=== PATIENT | female | born 1980 | race Caucasian/White ===

== ENCOUNTER 2017-01-24 17:47 | Inpatient (IN) | payer MEDICARE, MEDICAID ==
[~2017-01-24] VITALS: Ht 172.7 cm; Wt 90.7 kg
[2017-01-24 20:23] VITALS: BP 136/92
[2017-01-24] MEDS ORDERED: POTASSIUM CHLORIDE 20 MEQ ER TABLET PO ONE (21:00)
[2017-01-24] MEDS ORDERED: PNEUMOCOCCAL VACCINE POLYVALENT 0.5 ML VIAL [PPSV23] IM ONE (21:00)
[2017-01-24] MEDS: LORazepam 2 MG TABLET PO PRN (21:11)
[2017-01-25 07:21] VITALS: BP 139/89
[2017-01-25 07:51] LABS: EOSINOPHILS % (AUTO) 5.6 % (1.0-6.0); HEMATOCRIT 43.9 % (36-46); HEMOGLOBIN 14.2 g/dL (12.0-16.0); LYMPHOCYTES # (AUTO) 3.9 K/uL (1.0-4.8); LYMPHOCYTES % (AUTO) 52.6 % (22.0-44.0); MEAN CORPUSCULAR HEMOGLOBIN 30.6 pg (26.0-34.0); MEAN CORPUSCULAR HGB CONC 32.2 G/dL (31.0-37.0); MEAN CORPUSCULAR VOLUME 95 fL (80-100); MONOCYTES # (AUTO) 0.7 K/uL (0.1-1.0); MONOCYTES % (AUTO) 9.1 % (2.0-9.0); NEUTROPHILS # (AUTO) 2.4 K/uL (1.8-7.7); NEUTROPHILS % (AUTO) 31.7 % (40.0-70.0); PLATELET COUNT (AUTO) 311 K/uL (150-450); RED BLOOD CELL COUNT(AUTO) 4.62 MIL/uL (4.00-5.20); RED CELL DISTRIBUTION WIDTH 13.3 % (11.5-14.5); WHITE BLOOD COUNT (AUTO) 7.5 K/uL (4.5-11.0)
[2017-01-25 08:29] LABS: ALANINE AMINOTRANSFERASE 47 U/L (12-78); ALBUMIN 3.4 g/dL (3.4-5.0); ANION GAP 8 mmol/L (8-16); ASPARTATE AMINOTRANSFERASE 45 U/L (15-37); BILIRUBIN,TOTAL 0.4 mg/dL (0.1-1.0); CALCIUM, TOTAL 8.6 mg/dL (8.8-10.5); CARBON DIOXIDE 25 mmol/L (22-29); CHLORIDE 105 mmol/L (98-107); CHOL/HDL RATIO 5.5 (3.9-5.7); CREATININE 0.75 mg/dL (0.60-1.30); GLOMERULAR FILTR. RATE CALC > 60 mL/min (>60); POTASSIUM 3.3 mmol/L (3.5-5.1); SODIUM SERUM 138 mmol/L (136-145); THYROID STIMULATING HORMONE 1.64 uIU/mL (0.36-3.74); TOTAL PROTEIN, SERUM 6.5 g/dL (6.4-8.2); UREA NITROGEN, BLOOD 12 mg/dL (7-18)
[2017-01-25] MEDS: NICOTINE 14 MG/24 HOUR PATCH TD SCH (09:00)
[2017-01-25] MEDS: BACITRACIN 28.4 GM OINTMENT TP SCH ×2 (09:23→17:31)
[2017-01-25] MEDS: LORazepam 2 MG TABLET PO PRN ×2 (09:23→18:07)
[2017-01-25] MEDS: QUEtiapine FUMARATE 300 MG TABLET PO SCH (10:50)
[2017-01-25] MEDS: TOPIRAMATE 25 MG TABLET PO SCH (10:50)
[2017-01-25 16:00] VITALS: BP 138/78
[2017-01-25] MEDS: HALOPERIDOL 5 MG TABLET PO PRN (18:07)
[2017-01-25] MEDS ORDERED: ACETAMINOPHEN 325 MG TABLET PO PRN (20:00)
[2017-01-25] MEDS: MUPIROCIN CALCIUM 2% 22 GM OINTMENT TP SCH (22:43)
[2017-01-26 03:25] VITALS: BP 132/91
[2017-01-26] MEDS: LORazepam 2 MG TABLET PO PRN ×2 (03:28→08:46)
[2017-01-26] MEDS: TOPIRAMATE 25 MG TABLET PO SCH (08:37)
[2017-01-26] MEDS: QUEtiapine FUMARATE 300 MG TABLET PO SCH (08:37)
[2017-01-26] MEDS: BACITRACIN 28.4 GM OINTMENT TP SCH ×2 (08:38→16:12)
[2017-01-26] MEDS: MUPIROCIN CALCIUM 2% 22 GM OINTMENT TP SCH ×2 (08:38→16:12)
[2017-01-26 08:44] VITALS: BP 129/78
[2017-01-26] MEDS: NICOTINE 14 MG/24 HOUR PATCH TD SCH (08:51)
[2017-01-26 08:52] LABS: HEMOGLOBIN A1C 5.3 % (4.5-6.2)
[2017-01-26 09:40] LABS: CHOL/HDL RATIO 4.8 (3.9-5.7); POTASSIUM 4.1 mmol/L (3.5-5.1); THYROID STIMULATING HORMONE 1.56 uIU/mL (0.36-3.74)
[2017-01-26] MEDS ORDERED: DiphenhydrAMINE HCL 50 MG/ML VIAL ONE (10:49)
[2017-01-26] MEDS ORDERED: HALOPERIDOL LACTATE 5 MG/ML VIAL ONE (10:49)
[2017-01-26] MEDS ORDERED: LORazepam 2 MG/ML VIAL ONE (10:49)
[2017-01-26] MEDS ORDERED: HALOPERIDOL LACTATE 5 MG/ML VIAL IM ONE (11:00)
[2017-01-26] MEDS ORDERED: LORazepam 2 MG/ML VIAL IM ONE (11:00)
[2017-01-26] MEDS ORDERED: DiphenhydrAMINE HCL 50 MG/ML VIAL IM ONE (11:00)
[2017-01-27 02:31] VITALS: BP 114/77
[2017-01-27] MEDS: NICOTINE 14 MG/24 HOUR PATCH TD SCH (08:05)
[2017-01-27] MEDS: MUPIROCIN CALCIUM 2% 22 GM OINTMENT TP SCH ×2 (08:05→17:02)
[2017-01-27] MEDS: HALOPERIDOL 5 MG TABLET PO PRN ×2 (08:05→17:03)
[2017-01-27] MEDS: QUEtiapine FUMARATE 300 MG TABLET PO SCH (08:05)
[2017-01-27] MEDS: LORazepam 2 MG TABLET PO PRN ×2 (08:05→17:03)
[2017-01-27] MEDS: TOPIRAMATE 25 MG TABLET PO SCH (08:05)
[2017-01-27] MEDS: BACITRACIN 28.4 GM OINTMENT TP SCH ×2 (08:05→17:02)
[2017-01-27] MEDS ORDERED: DiphenhydrAMINE HCL 50 MG/ML VIAL ONE (09:14)
[2017-01-27] MEDS ORDERED: LORazepam 2 MG/ML VIAL ONE (09:14)
[2017-01-27] MEDS ORDERED: HALOPERIDOL LACTATE 5 MG/ML VIAL ONE (09:14)
[2017-01-27] MEDS ORDERED: HALOPERIDOL LACTATE 5 MG/ML VIAL IM ONE (09:15)
[2017-01-27] MEDS ORDERED: DiphenhydrAMINE HCL 50 MG/ML VIAL IM ONE (09:15)
[2017-01-27] MEDS ORDERED: LORazepam 2 MG/ML VIAL IM ONE (09:15)
[2017-01-27 11:00] VITALS: BP 100/45
[2017-01-28 06:12] VITALS: BP 116/80
[2017-01-28 08:02] VITALS: BP 122/82
[2017-01-28] MEDS: TOPIRAMATE 25 MG TABLET PO SCH ×2 (08:23→16:32)
[2017-01-28] MEDS: QUEtiapine FUMARATE 300 MG TABLET PO SCH ×2 (08:23→16:31)
[2017-01-28] MEDS: MUPIROCIN CALCIUM 2% 22 GM OINTMENT TP SCH ×2 (08:24→16:32)
[2017-01-28] MEDS: BACITRACIN 28.4 GM OINTMENT TP SCH ×2 (08:24→16:32)
[2017-01-28] MEDS: LORazepam 2 MG TABLET PO PRN (08:29)
[2017-01-28] MEDS: NICOTINE 14 MG/24 HOUR PATCH TD SCH (08:29)
[2017-01-28] MEDS ORDERED: HALOPERIDOL LACTATE 5 MG/ML VIAL ONE (12:40)
[2017-01-28] MEDS ORDERED: LORazepam 2 MG/ML VIAL ONE (12:40)
[2017-01-28] MEDS ORDERED: DiphenhydrAMINE HCL 50 MG/ML VIAL ONE (12:40)
[2017-01-28] MEDS ORDERED: HALOPERIDOL LACTATE 5 MG/ML VIAL IM ONE ×2 (12:45→15:45)
[2017-01-28] MEDS ORDERED: LORazepam 2 MG/ML VIAL IM ONE ×2 (12:45→15:45)
[2017-01-28] MEDS ORDERED: DiphenhydrAMINE HCL 50 MG/ML VIAL IM ONE (12:45)
[2017-01-28 16:00] VITALS: BP 120/78
[2017-01-28 16:16] VITALS: BP 112/65
[2017-01-28 16:38] VITALS: BP 120/78
[2017-01-29 06:37] VITALS: BP 116/84
[2017-01-29] MEDS: QUEtiapine FUMARATE 300 MG TABLET PO SCH (08:21)
[2017-01-29] MEDS: MUPIROCIN CALCIUM 2% 22 GM OINTMENT TP SCH ×2 (08:21→17:00)
[2017-01-29] MEDS: BACITRACIN 28.4 GM OINTMENT TP SCH ×2 (08:21→17:00)
[2017-01-29] MEDS: TOPIRAMATE 25 MG TABLET PO SCH (08:22)
[2017-01-29] MEDS: NICOTINE 14 MG/24 HOUR PATCH TD SCH (08:22)
[2017-01-29] MEDS: IBUPROFEN 400 MG TABLET PO PRN (09:14)
[2017-01-29] MEDS ORDERED: DiphenhydrAMINE HCL 50 MG/ML VIAL IM ONE ×2 (10:30→11:45)
[2017-01-29] MEDS ORDERED: LORazepam 2 MG/ML VIAL IM ONE ×2 (10:30→11:45)
[2017-01-29] MEDS ORDERED: HALOPERIDOL LACTATE 5 MG/ML VIAL IM ONE ×2 (10:30→11:45)
[2017-01-29 16:40] VITALS: BP 121/88
[2017-01-29] MEDS: ZOLPIDEM TARTRATE 10 MG TABLET PO PRN (20:38)
[2017-01-30 00:31] VITALS: BP 130/84
[2017-01-30 08:18] VITALS: BP 111/63
[2017-01-30] MEDS: LORazepam 2 MG TABLET PO PRN ×2 (08:51→16:39)
[2017-01-30] MEDS: QUEtiapine FUMARATE 200 MG TABLET PO SCH ×2 (08:51→16:39)
[2017-01-30] MEDS: TOPIRAMATE 100 MG TABLET PO SCH ×2 (08:51→16:40)
[2017-01-30] MEDS: MUPIROCIN CALCIUM 2% 22 GM OINTMENT TP SCH ×2 (08:52→16:38)
[2017-01-30] MEDS: NICOTINE 14 MG/24 HOUR PATCH TD SCH (08:52)
[2017-01-30] MEDS: BACITRACIN 28.4 GM OINTMENT TP SCH ×2 (09:00→17:20)
[2017-01-30 16:00] VITALS: BP 108/65
[2017-01-31 05:53] VITALS: BP 114/71
[2017-01-31] MEDS: QUEtiapine FUMARATE 200 MG TABLET PO SCH ×2 (08:35→16:54)
[2017-01-31] MEDS: TOPIRAMATE 100 MG TABLET PO SCH ×2 (08:35→16:54)
[2017-01-31] MEDS: NICOTINE 14 MG/24 HOUR PATCH TD SCH (08:36)
[2017-01-31] MEDS: MUPIROCIN CALCIUM 2% 22 GM OINTMENT TP SCH ×2 (08:41→16:55)
[2017-01-31] MEDS: BACITRACIN 28.4 GM OINTMENT TP SCH ×2 (08:42→16:56)
[2017-01-31 09:05] VITALS: BP 114/69
[2017-01-31] MEDS: LORazepam 2 MG TABLET PO PRN (10:40)
[2017-01-31 16:00] VITALS: BP 112/63
[2017-01-31] MEDS: MAG HYDROX/AL HYDROX/SIMETH 30 ML SUSP UDCUP PO PRN (18:19)
[2017-02-01 06:15] VITALS: BP 108/70
[2017-02-01] MEDS: TOPIRAMATE 100 MG TABLET PO SCH ×2 (08:14→16:26)
[2017-02-01] MEDS: QUEtiapine FUMARATE 200 MG TABLET PO SCH ×2 (08:14→16:26)
[2017-02-01] MEDS: LORazepam 2 MG TABLET PO PRN (08:15)
[2017-02-01] MEDS: NICOTINE 14 MG/24 HOUR PATCH TD SCH (08:15)
[2017-02-01] MEDS: MUPIROCIN CALCIUM 2% 22 GM OINTMENT TP SCH ×2 (08:15→16:23)
[2017-02-01] MEDS: BACITRACIN 28.4 GM OINTMENT TP SCH ×2 (08:15→16:25)
[2017-02-01 08:19] VITALS: BP 108/60
[2017-02-01 16:31] VITALS: BP 119/77
[2017-02-01] MEDS: MAG HYDROX/AL HYDROX/SIMETH 30 ML SUSP UDCUP PO PRN (16:47)
[2017-02-02 06:26] VITALS: BP 120/80
[2017-02-02] MEDS: NICOTINE 14 MG/24 HOUR PATCH TD SCH (08:54)
[2017-02-02] MEDS: BACITRACIN 28.4 GM OINTMENT TP SCH ×2 (08:54→18:21)
[2017-02-02] MEDS: LORazepam 2 MG TABLET PO PRN (08:54)
[2017-02-02] MEDS: TOPIRAMATE 100 MG TABLET PO SCH ×2 (08:54→16:07)
[2017-02-02] MEDS: QUEtiapine FUMARATE 200 MG TABLET PO SCH ×2 (08:54→16:07)
[2017-02-02] MEDS: MUPIROCIN CALCIUM 2% 22 GM OINTMENT TP SCH ×2 (08:55→16:08)
[2017-02-02 16:22] VITALS: BP 109/69
[2017-02-02] MEDS: MAG HYDROX/AL HYDROX/SIMETH 30 ML SUSP UDCUP PO PRN (22:03)
[2017-02-03 02:54] VITALS: BP 117/69
[2017-02-03 08:33] VITALS: BP 135/75
[2017-02-03] MEDS: MUPIROCIN CALCIUM 2% 22 GM OINTMENT TP SCH ×2 (09:49→16:26)
[2017-02-03] MEDS: BACITRACIN 28.4 GM OINTMENT TP SCH ×2 (09:50→16:25)
[2017-02-03] MEDS: QUEtiapine FUMARATE 200 MG TABLET PO SCH ×2 (09:51→16:24)
[2017-02-03] MEDS: TOPIRAMATE 100 MG TABLET PO SCH ×2 (09:51→16:24)
[2017-02-03] MEDS: LORazepam 2 MG TABLET PO PRN ×2 (09:53→20:14)
[2017-02-03] MEDS: NICOTINE 14 MG/24 HOUR PATCH TD SCH (09:53)
[2017-02-03 16:00] VITALS: BP 117/69
[2017-02-04] MEDS: MUPIROCIN CALCIUM 2% 22 GM OINTMENT TP SCH ×2 (08:17→17:26)
[2017-02-04] MEDS: NICOTINE 14 MG/24 HOUR PATCH TD SCH (08:18)
[2017-02-04] MEDS: TOPIRAMATE 100 MG TABLET PO SCH ×2 (08:18→17:26)
[2017-02-04] MEDS: QUEtiapine FUMARATE 200 MG TABLET PO SCH ×2 (08:18→17:26)
[2017-02-04] MEDS: LORazepam 2 MG TABLET PO PRN (08:18)
[2017-02-04 08:44] VITALS: BP 112/75
[2017-02-04] MEDS: BACITRACIN 28.4 GM OINTMENT TP SCH ×2 (09:33→17:26)
[2017-02-04] MEDS: ZOLPIDEM TARTRATE 10 MG TABLET PO PRN (21:09)
[2017-02-04] MEDS: MAG HYDROX/AL HYDROX/SIMETH 30 ML SUSP UDCUP PO PRN (21:16)
[2017-02-05 02:10] VITALS: BP 101/84
[2017-02-05] MEDS ORDERED: DiphenhydrAMINE HCL 50 MG/ML VIAL ONE (07:41)
[2017-02-05] MEDS ORDERED: HALOPERIDOL LACTATE 5 MG/ML VIAL ONE (07:41)
[2017-02-05] MEDS ORDERED: LORazepam 2 MG/ML VIAL ONE (07:41)
[2017-02-05] MEDS ORDERED: HALOPERIDOL LACTATE 5 MG/ML VIAL IM ONE (07:45)
[2017-02-05] MEDS ORDERED: DiphenhydrAMINE HCL 50 MG/ML VIAL IM ONE (07:45)
[2017-02-05] MEDS ORDERED: LORazepam 2 MG/ML VIAL IM ONE (07:45)
[2017-02-05] MEDS: QUEtiapine FUMARATE 200 MG TABLET PO SCH ×2 (09:00→16:27)
[2017-02-05] MEDS: TOPIRAMATE 100 MG TABLET PO SCH ×2 (09:00→16:27)
[2017-02-05] MEDS: MUPIROCIN CALCIUM 2% 22 GM OINTMENT TP SCH ×2 (09:00→16:31)
[2017-02-05] MEDS: NICOTINE 14 MG/24 HOUR PATCH TD SCH (09:25)
[2017-02-05] MEDS: BACITRACIN 28.4 GM OINTMENT TP SCH ×2 (09:25→16:31)
[2017-02-05 09:50] VITALS: BP 120/79
[2017-02-05 16:22] VITALS: BP 108/68
[2017-02-05] MEDS: ZOLPIDEM TARTRATE 10 MG TABLET PO PRN (21:01)
[2017-02-06 01:40] VITALS: BP 109/66
[2017-02-06 08:04] VITALS: BP 127/77
[2017-02-06] MEDS: QUEtiapine FUMARATE 200 MG TABLET PO SCH ×5 (09:00→17:50)
[2017-02-06] MEDS: TOPIRAMATE 100 MG TABLET PO SCH ×5 (09:00→17:50)
[2017-02-06] MEDS: MUPIROCIN CALCIUM 2% 22 GM OINTMENT TP SCH ×2 (09:00→17:08)
[2017-02-06] MEDS: NICOTINE 14 MG/24 HOUR PATCH TD SCH (09:05)
[2017-02-06 16:41] VITALS: BP 114/76
[2017-02-06] MEDS ORDERED: HALOPERIDOL LACTATE 5 MG/ML VIAL ONE (19:50)
[2017-02-06] MEDS ORDERED: DiphenhydrAMINE HCL 50 MG/ML VIAL ONE (19:50)
[2017-02-06] MEDS ORDERED: LORazepam 2 MG/ML VIAL ONE (19:50)
[2017-02-06] MEDS ORDERED: DiphenhydrAMINE HCL 50 MG/ML VIAL IM ONE (20:00)
[2017-02-06] MEDS ORDERED: LORazepam 2 MG/ML VIAL IM ONE (20:00)
[2017-02-06] MEDS ORDERED: HALOPERIDOL LACTATE 5 MG/ML VIAL IM ONE (20:00)
[2017-02-06] MEDS: MAG HYDROX/AL HYDROX/SIMETH 30 ML SUSP UDCUP PO PRN (20:40)
[2017-02-07 07:15] VITALS: BP 125/73
[2017-02-07 08:52] VITALS: BP 101/62
[2017-02-07] MEDS: NICOTINE 14 MG/24 HOUR PATCH TD SCH (09:03)
[2017-02-07] MEDS: MUPIROCIN CALCIUM 2% 22 GM OINTMENT TP SCH ×2 (09:03→17:16)
[2017-02-07] MEDS: IBUPROFEN 400 MG TABLET PO PRN (14:25)
[2017-02-07 16:20] VITALS: BP 131/73
[2017-02-07] MEDS: QUEtiapine FUMARATE 200 MG TABLET PO SCH (17:16)
[2017-02-07] MEDS: TOPIRAMATE 100 MG TABLET PO SCH (17:16)
[2017-02-07] MEDS: ZOLPIDEM TARTRATE 10 MG TABLET PO PRN (21:17)
[2017-02-08] MEDS: LORazepam 2 MG TABLET PO PRN ×3 (04:05→21:25)
[2017-02-08 07:02] VITALS: BP 135/72
[2017-02-08 08:29] VITALS: BP 121/68
[2017-02-08] MEDS: NICOTINE 14 MG/24 HOUR PATCH TD SCH (08:49)
[2017-02-08] MEDS: QUEtiapine FUMARATE 200 MG TABLET PO SCH ×2 (08:49→16:23)
[2017-02-08] MEDS: MUPIROCIN CALCIUM 2% 22 GM OINTMENT TP SCH ×2 (08:49→16:22)
[2017-02-08] MEDS: TOPIRAMATE 100 MG TABLET PO SCH ×2 (08:49→16:22)
[2017-02-09 03:59] VITALS: BP 117/63
[2017-02-09] MEDS ORDERED: TOPI100 PO (08:53)
[2017-02-09] MEDS ORDERED: QUET200T PO (08:53)
[2017-02-09] MEDS: QUEtiapine FUMARATE 200 MG TABLET PO SCH (09:06)
[2017-02-09] MEDS: TOPIRAMATE 100 MG TABLET PO SCH (09:09)
[2017-02-09] MEDS: NICOTINE 14 MG/24 HOUR PATCH TD SCH (09:10)
[2017-02-09] MEDS: MUPIROCIN CALCIUM 2% 22 GM OINTMENT TP SCH (09:14)
== END 2017-02-09 12:50 | disposition home or self-care (01) | DRG 885 ==
LOC: B3A 19:45 → EDSTATUS 19:49 → B3A 01-28 14:02
PROVIDERS: ADMIT Psychiatry & Neurology Child & Adolescent Psychiatry; ATTEND Psychiatry & Neurology Child & Adolescent Psychiatry
DX: F31.2 Bipolar disorder, current episode manic severe with psychotic features (principal); R45.851 Suicidal ideations; F29 Unspecified psychosis not due to a substance or known physiological condition; E87.6 Hypokalemia; E66.3 Overweight; Z91.19 Patient's noncompliance with other medical treatment and regimen; Z91.410 Personal history of adult physical and sexual abuse; Z88.8 Allergy status to other drugs, medicaments and biological substances; Z91.030 Bee allergy status; Z68.30 Body mass index [BMI] 30.0-30.9, adult; Z28.21 Immunization not carried out because of patient refusal
CPT/HCPCS: 83036; 84132; 84436; 84439; 84443; 87081; J1200; J1630; J2060